=== PATIENT | female | born 1995 | race Caucasian/White ===

== ENCOUNTER 2016-11-05 19:02 | Emergency (ER) | payer BC ==
[~2016-11-05] VITALS: Ht 157.5 cm; Wt 106.6 kg
--- NOTE | ~2016-11-05 | EKG ---
[address] [address] ELECTROCARDIOGRAM REPORT Name: APOLLO CASILLAS Room #: DEP [facility]#: [id number] Admission: 11/05/16 Attend Phys: Discharge: 11/05/16 Date of : [birth year] Report #: [id number] THIS REPORT FOR: //name// [facility] ED Test Date: 2016-11-05 Test Time: 19:06:02 Pat Name: APOLLO CASILLAS Department: Room: Gender: F [employer]: [place] : 1995 Requested By: Hugo Garsia Order Number: [id number] MD: Everardo Mcguire Measurements Intervals [place] Rate: 83 P: 25 PA: 142 QRS: 53 QRSD: 97 T: 19 QT: 368 QTc: 433 Interpretive Statements Sinus rhythm No significant abnormality No previous ECG available for comparison Electronically Signed On 11-07-2016 14:54:25 CDT by Everardo Mcguire [email or web address] <ELECTRONICALLY SIGNED> By: Everardo Mcguire MD, [facility] 11/07/16 1454 1906 1906 Everardo Mcguire MD, FACC /EPI
[2016-11-05] MEDS ORDERED: GLUCOPHAGE1000 MG PO (19:11)
[2016-11-05] MEDS ORDERED: VICTOZA0.6 MG/0.1 SUBQ (19:12)
[2016-11-05] MEDS ORDERED: LEXAPRO 10 MG T10 M1 PO (19:12)
[2016-11-05] MEDS ORDERED: BUTALB-APAP-CA1 EACH PO (20:06)
[2016-11-05] MEDS ORDERED: ATIVAN0.5 MG PO (20:07)
[2016-11-05 20:56] VITALS: BP 130/89
== END 2016-11-05 20:58 | disposition home or self-care (01) ==
LOC: ER 19:02
DX: F45.8 Other somatoform disorders (principal); R07.89 Other chest pain